=== PATIENT | female | born 1990 | race Caucasian/White ===

== ENCOUNTER → 2019-10-13 15:45 | Outpatient (BNVA) | payer SELFPAY | PROVIDERS: Family Provider Family Medicine; PCP Nurse Practitioner; Visit Provider Nurse Practitioner Family | DX: N93.9 Abnormal uterine and vaginal bleeding, unspecified (principal) | CPT/HCPCS: 80053; 81003; 81025; 84439; 84443; 84481; 85025 ==

== ENCOUNTER → 2020-01-24 10:41 | Outpatient (BNVA) | payer SELFPAY | PROVIDERS: Family Provider Family Medicine; PCP Nurse Practitioner; Visit Provider Nurse Practitioner Family | DX: Z12.4 Encounter for screening for malignant neoplasm of cervix (principal) | CPT/HCPCS: 88175 ==

== ENCOUNTER → 2023-10-13 16:00 | Outpatient (BNVA) | payer SELFPAY | PROVIDERS: Family Provider Family Medicine; PCP Nurse Practitioner Family; Visit Provider Nurse Practitioner Family | DX: Z12.4 Encounter for screening for malignant neoplasm of cervix (principal) | CPT/HCPCS: 81025; 88175 ==

== ENCOUNTER → 2024-12-27 14:29 | Outpatient (BNVA) | payer SELFPAY | PROVIDERS: PCP Nurse Practitioner Family; Visit Provider Nurse Practitioner Family | DX: Z30.09 Encounter for other general counseling and advice on contraception (principal) | CPT/HCPCS: 81025 ==